=== PATIENT | male | born 1980 | race Caucasian/White ===

== ENCOUNTER 2024-12-20 02:07 | Day surgery (SDC) | payer OTHER, SELFPAY ==
[2024-12-14 08:45] VITALS: BMI 22.2
--- NOTE | 2024-12-14 09:17 | PC.NURSE ---
Report to Hospital entrance 7 to the right of the green pavilion located off [facility] by 'makayla parking lot, at time _1000_ on date _26-44-2021_. Planned Procedure Time: _1200_.? Time changes happen often and if your time is changed the preop area will call you the afternoon before. - You and your visitor will be asked to self-screen and do not enter if you have any COVID symptoms. Please call surgeon if you need to reschedule. - A mask is optional within the hospital at this time. Patients may have clear liquids (water, carbonated beverages, clear teas, apple juice) until 3 hours prior to surgery with a maximum of 20 ounces. - No food from midnight until time of surgery and no smoking, or chewing tobacco (or any form of nicotine). No chewing gum, candy or mints. Take only the following medications with a SIP of water on the morning of surgery: ____None___ DO NOT STOP ANY OF YOUR OTHER PRESCRIPTION MEDICATIONS PRIOR TO SURGERY EXCEPT THE FOLLOWING Hold all vitamins and supplements for 3 days per anesthesiologist. Medications to discontinue per physician Date to take last dose Please no make-up, nail burundian, hairspray, perfume, deodorant, or body powder the day of surgery.? No jewelry (including any body piercings) or valuables the day of surgery, leave them at home.? Please take a shower or bath the night before, or the morning of, surgery with an antibacterial soap.? Wear comfortable, loose fitting clothing.? - Jewelry must be removed prior to entering the operating room.? Rings and piercings that are not removed may be cut off. - The hospital will not accept responsibility for valuables.? - Please leave all valuables, including medications, at home the day of surgery. If you are going home after surgery, a licensed local company truck driver must drive you home.? - NO public transportation without another adult if you receive anesthesia. - We recommend that an adult stay with you for 24 hours following discharge. - We also recommend that you do not drive, make important decision, drink alcoholic beverages, or take any drugs that were not prescribed by your health care provider for at least 24 hours after your discharge time. Follow any additional instructions given to you from your surgeon. Telephone instructions given to __Dawna Lui___and asked if any additional questions and then verbalized understanding. Patient advised to call surgeon office or pre surgery nurse liaison [phone] if any additional questions.
--- OUTSIDE RECORDS SUMMARY | 2024-12-20 02:10 | XMS_ITS | Clinical Summary ---
Author Organization [facility] Address [address] [place] [address] Care Team Providers Care Eyeglass Inspector Name Role Phone Yris Melgar MD, Julio Primary Care Provider [phone] Allergies No known active allergies Medications No known medications Active Problems Problem Noted Date Diagnosed Date Recurrent umbilical hernia 01/30/2024 Family history of Jimenez syndrome 01/24/2024 Social History Tobacco Use Types Packs/Day Years Used Date Smoking Tobacco: Former Cigarettes Tobacco Cessation:Counseling Given: Not Answered Sex and Gender Information Value Date Recorded Sex Assigned at Not on file Legal Sex Male 2:40 PM CDT Gender Identity Not on file Sexual Orientation Not on file Last Filed Vital Signs Vital Sign Reading Time Taken Comments Blood Pressure 165/92 01/24/2024 10:02 AM CDT Pulse 66 01/24/2024 10:02 AM CDT Temperature 36.4 C (97.6 F) 01/24/2024 10:02 AM CDT Respiratory Rate 16 01/24/2024 10:02 AM CDT Oxygen Saturation 100% 01/24/2024 10:02 AM CDT Inhaled Oxygen Concentration - - Weight 79.8 kg (176 lb) 01/24/2024 10:02 AM CDT Height 190.5 cm (6' 3 ) 01/24/2024 10:02 AM CDT Body Mass Index 22 01/24/2024 10:02 AM CDT Plan of Treatment Health Maintenance Due Date Last Done Comments Annual Physical 12/15/1983 Hepatitis C 1998 DTaP, Tdap and Td Vaccines ( 1 - Tdap) 12/15/1999 Hepatitis B Vaccines (1 of 3 - 19+ 3-dose series) 12/15/1999 COVID-19 Vaccine (2023-2 5 season) 2024 PHQ-2 (Physician [place]) 08/22/2024 HPV Vaccines Aged Out No longer eligi ble based on patient's age to complete this topic Meningococcal B Vaccine Aged Out No l onger eligible based on patient's age to complete this topic Meningococcal Vaccine Aged Out No brock tree eligible based on patient's age to complete this topic Pneumococcal Vaccine: Pediat rics (0 to 5 Years) and At-Risk Patients (6 to 49 Years) Aged Out No longer eligible b ased on patient's age to complete this topic RSV Immunizations Under 20 Months Aged Out No longer eligible based on patient's age to complete this topic Insurance [id number] [place] [id number] [employer] Care Teams Eyeglass Inspector Relationship Specialty Start Date End Date Julio Arndt MD [facility] [address] [place] [address] PCP - General INTERNAL MEDICINE 11/07/23
[2024-12-20 09:50] VITALS: BP 128/90; PULSE 68; RESP 18; TEMP 36.7; O2SAT 100; BMI 22.1
--- NOTE | 2024-12-20 10:47 | SUR.PREOP ---
case cancelled for today patient and guards aware.
== END 2024-12-20 10:55 | disposition home or self-care (01) ==
PROVIDERS: Visit Provider Surgery
DX: K42.0 Umbilical hernia with obstruction, without gangrene (principal); Z53.9 Procedure and treatment not carried out, unspecified reason
CPT/HCPCS: 99212; G0463

== ENCOUNTER 2025-02-28 01:33 | Day surgery (SDC) | payer OTHER, SELFPAY ==
[2025-02-21 09:06] VITALS: BMI 21.7
--- NOTE | 2025-02-21 09:22 | PC.NURSE ---
Report to hospital entrance 7 right of the green pavilion located off [facility] by Jackie guzman, at time _1200_ on date _[id number]_. Planned Procedure Time: _2pm_.? Time changes happen often and if your time is changed the preop area will call you the afternoon before. - You and your visitor will be asked to self-screen and do not enter if you have any COVID symptoms. Please call surgeon if you need to reschedule. - A mask is optional within the hospital at this time. Patients may have clear liquids (water, carbonated beverages, clear teas, apple juice) until 3 hours prior to surgery with a maximum of 20 ounces. - No food from midnight until time of surgery and no smoking, or chewing tobacco (or any form of nicotine). No chewing gum, candy or mints. Take only the following medications with a SIP of water on the morning of surgery: ____None___ DO NOT STOP ANY OF YOUR OTHER PRESCRIPTION MEDICATIONS PRIOR TO SURGERY EXCEPT THE FOLLOWING Hold all vitamins and supplements for 3 days per anesthesiologist. Medications to discontinue per physician Date to take last dose Please no make-up, nail chinese, hairspray, perfume, deodorant, or body powder the day of surgery.? No jewelry (including any body piercings) or valuables the day of surgery, leave them at home.? Please take a shower or bath the night before, or the morning of, surgery with an antibacterial soap.? Wear comfortable, loose fitting clothing.? - Jewelry must be removed prior to entering the operating room.? Rings and piercings that are not removed may be cut off. - The hospital will not accept responsibility for valuables.? - Please leave all valuables, including medications, at home the day of surgery. If you are going home after surgery, a licensed bobtail driver must drive you home.? - NO public transportation without another adult if you receive anesthesia. - We recommend that an adult stay with you for 24 hours following discharge. - We also recommend that you do not drive, make important decision, drink alcoholic beverages, or take any drugs that were not prescribed by your health care provider for at least 24 hours after your discharge time. Follow any additional instructions given to you from your surgeon. Telephone instructions given to __Dawna Lui___and asked if any additional questions and then verbalized understanding. Patient advised to call surgeon office or pre surgery nurse liaison [phone] if any additional questions.
--- OUTSIDE RECORDS SUMMARY | 2025-02-28 01:38 | XMS_ITS | Clinical Summary ---
Author Organization [facility] Address [address] [place] [address] Care Team Providers Care Marble Cleaner Name Role Phone Yris Melgar MD, Julio Primary Care Provider [phone] Allergies No known active allergies Medications No [...] 10:02 AM CDT Height 190.5 cm (6' 3) 01/24/2024 10:02 AM CDT Body Mass Index 22 01/24/2024 10:02 AM CDT Plan of Treatment Health Maintenance Due Date Last Done Comments Annual Physical 12/15/1983 Hepatitis C 1998 DTaP, Tdap and Td Vaccines ( 1 - Tdap) 12/15/1999 Hepatitis B Vaccines (1 of 3 - 19+ 3-dose series) 12/15/1999 COVID-19 Vaccine (2023-2 5 season) 2024 PHQ-2 (Phys[facility] [place]) 08/22/2024 HPV Vaccines Aged Out No longer [...] complete this topic Insurance [id number] [place] [id number] [employer] Care Teams Marble Cleaner Relationship Specialty Start Date End Date Julio Arndt MD [facility] [address] [place] [address] PCP - General INTERNAL MEDICINE 11/07/23
--- NOTE | 2025-02-28 12:17 | P.HP_ITS ---
H&P: HPI History of Present Illness Date/Time: 02/28/25 12:17 Chief Complaint: Recurrent incisional hernia Narrative: Tawanda is a 43 y/o male who presents to the office at the request of Dr. Arndt for evaluation of a recurrent umbilical hernia. Patient states he has noticed a bulge at his umbilicus. He underwent right inguinal hernia repair and open umbilical hernia repair in 2018 in [place]. He states a few days following surgery, he stretched and felt a pulling pain at his umbilicus. States the bulge has gradually increased in size. States the bulge is very tender to palpation and becoming more difficult to reduce. Abdominal ultrasound was performed on 12/15/23 showing a 2.2cm recurrent umbilical hernia and a 2.5cm supraumbilical hernia, both containing mesenteric fat. Review of Systems Review of Systems: All systems reviewed & are unremarkable except as noted in HPI and below PMFSH Surgical History Surgical History H/O inguinal hernia repair 2018 Family History Family History Father Cancer Diabetes mellitus Social History Social History Smoking status: Former smoker Substance use type: opiates and other Other substance usage details: Stimulant use. Living arrangements: incarcerated Meds Home Medications and Allergies Home Medications ?Medication ?Instructions ?Recorded ?Confirmed ?Type No Home Medications 08/29/24 02/21/25 History Allergies Allergy/AdvReac Type Severity Reaction Status Date / Time No Known Allergies Allergy Verified 02/21/25 09:05 Exam Const: General: cooperative, comfortable and no acute distress Resp: Auscultation: clear to auscultation bilaterally Cardio: Rate: regular rate Rhythm: regular rhythm GI: Inspection: normal to inspection and non-distended GI Palp: Yes abdominal tenderness and Yes Hernia present Other: supraumbilical hernia measuring 3 cm, umbilical hernia measuring 2 cm Skin: General skin exam: normal color and no rashes or lesions noted Neuro: General: patient oriented x3 and CN's II-XI intact bilaterally
--- NOTE | 2025-02-28 12:19 | WPDHPUPDATE1 ---
History and Physical Update Update Date/Time: 02/28/25 12:19 History and Physical has been reviewed, including an updated exam of the patient. There are NO changes in the patient's condition. Risks, benefits, and alternatives have been discussed and questions answered. Patient agrees to proceed with procedure.
--- NOTE | 2025-02-28 12:21 | WPDHPUPDATE1 ---
History and Physical Update Update Date/Time: 02/28/25 12:21 History and Physical has been reviewed, including an updated exam of the patient. There are NO changes in the patient's condition. Risks, benefits, and alternatives have been discussed and questions answered. Patient agrees to proceed with procedure.
[2025-02-28 12:30] VITALS: BP 147/94; PULSE 71; RESP 16; TEMP 36.7; O2SAT 100
[2025-02-28] MEDS: ACETAMINOPHEN 500 MG TABLET 1000 MG PO (12:30)
[2025-02-28] MEDS: LACTATED RINGERS 1,000 ML 30 ML IV CONT ×2 (12:30→15:11)
[2025-02-28] MEDS: KETOROLAC 15 MG/ML VIAL (*BKC) IV PUSH (12:30)
--- NOTE | 2025-02-28 13:43 | PM.IMHP ---
H&P: HPI History of Present Illness Date/Time: 02/28/25 13:43 Chief Complaint: left inguinal hernia Narrative: The patient is a 44-year-old male that presented to have robotic assisted repair of recurrent umbilical hernia, as well as supraumbilical ventral hernia. Upon evaluation, the patient informed me that he has a new bulge in his left groin. He reports that he had a coughing episode a few weeks ago and felt something tear in his left groin. Since then he has noted bulging and discomfort in his left groin area. The patient denies any obstructive symptoms. Review of Systems Review of Systems: All systems reviewed & are unremarkable except as noted in HPI and below PMFSH Surgical History Surgical History H/O inguinal hernia repair 2018 Family History Family History Father Cancer Diabetes mellitus Social History Social History Smoking status: Former smoker Substance use type: opiates and other Other substance usage details: Stimulant use. Living arrangements: incarcerated Meds Home Medications and Allergies Home Medications ?Medication ?Instructions ?Recorded ?Confirmed ?Type No Home Medications 08/29/24 02/21/25 History Allergies Allergy/AdvReac Type Severity Reaction Status Date / Time No Known Allergies Allergy Verified 02/28/25 13:25 Vital Signs Vital Signs - 24 hr 02/28/25 12:30 Temperature 36.7 C Pulse Rate 71 Respiratory Rate 16 Blood Pressure 147/94 H Pulse Oximetry 100 Oxygen Delivery Room Air Exam Const: General: cooperative, comfortable and no acute distress HENMT: Head: normal to inspection, normocephalic and atraumatic Eyes: General: appearance normal, both eyes and all related structures Neck: Neck: normal visual inspection, full ROM and no lymphadenopathy Resp: Auscultation: clear to auscultation bilaterally Cardio: Rate: regular rate Rhythm: regular rhythm GI: Inspection: normal to inspection and non-distended GI Palp: Yes abdominal tenderness, Yes Soft to palpation and Yes Hernia present Other: Moderate-sized left inguinal hernia that is easily reducible, 3 cm supraumbilical ventral hernia, 2 cm umbilical hernia Skin: General skin exam: normal color and no rashes or lesions noted Neuro: General: patient oriented x3 and CN's II-XI intact bilaterally Extrem: General: normal to inspection and full ROM Assessment and Plan Assessment and plan (1) Left inguinal hernia: Code(s): K40.90 - Unilateral inguinal hernia, without obstruction or gangrene, not specified as recurrent Status: Acute Assessment and Plan: will go ahead and set up for robotic assisted left inguinal hernia repair with mesh (2) Recurrent umbilical hernia with incarceration: Code(s): K42.0 - Umbilical hernia with obstruction, without gangrene Status: Acute Assessment and Plan: will likely hold off on repair for later date as repairing umbilical and ventral hernia 1st would make inguinal surgery difficult in the future, will assess intraoperatively
--- NOTE | 2025-02-28 13:45 | P.PNAN_ITS ---
Anes - Initial Pre Proc Eval Procedure: Operation Date: 02/28/25 14:00 Proposed Procedures p Robotic Assisted Incarcerated Recurrent Umbilical Hernia Repair with Mesh - Barbara Chavez MD Date/Time: 02/28/25 13:45 Surgeon: Barbara Chavez MD Pre Op Diagnosis: Incarcerated Recurrent Umb Hernia Patient Data Age: 44 Gender: M Height: 1.91 m Weight: 78 kg Last Vital Signs Temp 36.7 C 02/28/25 12:30 Pulse 71 02/28/25 12:30 Resp 16 02/28/25 12:30 BP 147/94 H 02/28/25 12:30 Pulse Ox 100 02/28/25 12:30 O2 Del Method Room Air 02/28/25 12:30 Allergies Allergy/AdvReac Type Severity Reaction Status Date / Time No Known Allergies Allergy Verified 02/28/25 13:25 Home Medications ?Medication ?Instructions ?Recorded ?Confirmed ?Type No Home Medications 08/29/24 02/21/25 History Laboratory Tests 02/28/25 12:24 Blood Type A Positive Antibody Screen Negative Patient hx anesthesia problems: none Family hx anesthesia problems: none Results Review: All pre-operative results and documents have been reviewed as part of the pre- operative evaluation. [facility] Surgical History Surgical History H/O inguinal hernia repair 2018 Family History Family History Father Cancer Diabetes mellitus Social History Social History Smoking status: Former smoker Substance use type: opiates and other Other substance usage details: Stimulant use. Living arrangements: incarcerated Anes - Eval Final PreProcedure Day of Procedure 02/28/25 13:45 Patient weight: normal Heart: regular rate and rhythm Lungs: clear to auscultation Airway: Mallampati scale class II Neurological: alert and oriented Last oral intake: >/= 8 hours ASA classification: II Emergent: no Anesthetic plan: proceed Anesthesia type and monitoring: general ETT and standard monitoring Results Review: All pre-operative results and documents have been reviewed as part of the pre- operative evaluation. Informed Consent: The patient's anesthetic plan and its attendant risks and benefits were discussed with the patient/family/POA. Questions were solicited and answers provided to the satisfaction of the patient/family/POA.
--- NOTE | 2025-02-28 13:47 | WPDHPUPDATE1 ---
History and Physical Update Update Date/Time: 02/28/25 13:47 History and Physical has been reviewed, including an updated exam of the patient. There are NO changes in the patient's condition. Risks, benefits, and alternatives have been discussed and questions answered. Patient agrees to proceed with procedure. please see new H and P reflecting plan robotic assisted left inguinal hernia surgery
[2025-02-28] MEDS: ceFAZolin 2 GM in SODIUM CHLORIDE 0.9% IV 50 ML 100 ML IVPB (14:01)
[2025-02-28] MEDS: BUPIVACAINE/EPINEPHRINE 0.5% 30 ML VIAL INFILTRATE (14:22)
--- NOTE | 2025-02-28 15:09 | P.OP_ITS ---
Procedure Note - Detailed Date of Procedure 02/28/25 Pre-op Diagnosis Left inguinal hernia Post-op Diagnosis Same Procedure Performed robotic assisted left inguinal hernia repair with mesh Surgeon Barbara Chavez MD Anesthesia General and Local Indications 44-year-old male left inguinal hernia after upper respiratory infection and coughing a few weeks ago. Patient reports a bulge and tenderness, discomfort area. Findings indirect left inguinal hernia Description of Procedure Patient was brought into the operating room and placed in the supine position. After adequate induction of general anesthesia, the patient was prepped and draped in normal sterile fashion. A time-out was then done to verify the patient's identity, as well as the procedure being performed. I began by making a 8 mm incision in the supraumbilical region, a Veress needle was then placed into the peritoneal cavity. CO2 gas was then insufflated and after adequate pneumoperitoneum was achieved, the Veress needle was removed. I then placed an 8 mm trocar through this incision. I then placed the endoscope through this trocar site and under direct visualization placed 2 further 8 mm ports in the right and left mid abdomen. The [employer] robot was then docked to the 3 trocar sites. I then scrubbed out and went to the robotic console. Upon examining the pelvis, it was noted that the patient had a moderate sized left inguinal hernia. The right side was examined and no hernia defect was noted. I began by making a preperitoneal flap approximately 6 cm superior to the defect. This flap was carried medially past the umbilical ligaments and laterally to the transversalis. It then began dissection of my medial compartment taking this down to the pubic tubercle. I then began the lateral dissection taking this down to the transversalis fascia. Once these compartments were achieved, I began dissection around the cord structures. A moderate sized indirect hernia was noted at this point. Using careful dissection, was able to reduce indirect hernia sac off the cord structures. Once this was adequately done, I went ahead and placed a large piece of 3D Max mesh into the abdominal cavity. The mesh was carefully positioned, centering the center of the mesh over the indirect defect. Once this was done, was very satisfied with our repair. Using 3-0 Vicryl sutures, I tacked the mesh medially to Amado's ligament. Two lateral sutures were placed from the mesh to the transversalis fascia. I then closed the peritoneal flap with a running 2.0 V Lock suture. The abdomen was then desufflated, and all ports were removed. All incisions were then closed with the 4.0 monocryl suture. Dermabond was placed on each wound. The patient tolerated the procedure well, was extubated in the operating room postoperativ chris, and will now be transferred to the recovery room in stable condition. Implants large 3DMax mesh Estimated Blood Loss 10 Drains No Packing No Pathology None sent Complications No immediate complications Condition Stable Disposition PACU [facility] Billing Surgery - Charge Forward: Surgery Billing
[2025-02-28 15:11] VITALS: BP 98/57; PULSE 82; RESP 16; TEMP 37.4; O2SAT 97
[2025-02-28 15:25] VITALS: BP 127/79; PULSE 94; RESP 16; O2SAT 97
--- NOTE | 2025-02-28 15:31 | SUR.PHASEI ---
1525 - scrotal support to be placed on pt in outpatient area,
[2025-02-28 15:40] VITALS: BP 124/79; PULSE 77; RESP 16; O2SAT 98
[2025-02-28 15:52] VITALS: BP 134/82; PULSE 72; RESP 16
[2025-02-28] MEDS: oxyCODONE HCL (*CRX) 5 MG TAB IR PO (16:19)
[2025-02-28 16:20] VITALS: BP 128/78; PULSE 71; RESP 16
--- NOTE | 2025-02-28 16:45 | SUR.PHASEII ---
2 [employer]UR[employer] GUARDS ESCORTED PATIENT AND 2 INTERMEDIATE GUARDS TO EXIT. INTERMEDIATE GUARDS PRESENT WITH PATIENT AT ALL TIMES WHILE IN OP AREA.
== END 2025-02-28 16:45 | disposition home or self-care (01) ==
PROVIDERS: Visit Provider Surgery
PROC: (CPT 49650; principal; 2025-02-28 14:00)
DX: K40.90 Unilateral inguinal hernia, without obstruction or gangrene, not specified as recurrent (principal); Z98.890 Other specified postprocedural states; Z87.891 Personal history of nicotine dependence; Z80.9 Family history of malignant neoplasm, unspecified
CPT/HCPCS: 49650; S2900; 36415; 86850; 86900; 86901; J0690; A9270; C1781; J1100; J1171; J1885; J2003; J2250; J2405; J2704; J3010; J7120

== ENCOUNTER 2025-04-24 01:48 | Day surgery (SDC) | payer OTHER, SELFPAY ==
[2025-04-23 11:36] VITALS: BMI 22.3
[2025-04-24 07:49] VITALS: BP 138/93; PULSE 76; RESP 18; TEMP 36.2; O2SAT 100; BMI 21.2
[2025-04-24] MEDS: LACTATED RINGERS 1,000 ML 150 ML IV CONT (07:59)
--- NOTE | 2025-04-24 08:09 | WPDANESEPPF ---
Anes - Initial Pre Proc Eval Procedure: Operation Date: 04/24/25 09:00 Proposed Procedures p Screening Colonoscopy - Raj Arredondo MD Date/Time: 04/24/25 08:09 Surgeon: Raj Arredondo MD Pre Op Diagnosis: Family history of malignant neoplasm of digestive Patient Data Age: 44 Gender: M Height: 1.88 m Weight: 75.2 kg Last Vital Signs Temp 36.2 C L 04/24/25 07:49 Pulse 76 04/24/25 07:49 Resp 18 04/24/25 07:49 BP 138/93 H 04/24/25 07:49 Pulse Ox 100 04/24/25 07:49 O2 Del Method Room Air 04/24/25 07:49 Allergies Allergy/AdvReac Type Severity Reaction Status Date / Time No Known Allergies Allergy Verified 04/24/25 07:48 Home Medications ?Medication ?Instructions ?Recorded ?Confirmed ?Type No Home Medications 08/29/24 04/23/25 History Patient hx anesthesia problems: none Family hx anesthesia problems: none Results Review: All pre-operative results and documents have been reviewed as part of the pre-operative evaluation. [facility] Surgical History Surgical History (Updated 03/12/25 @ 13:07 by Karen Leslie CMA) Hx of inguinal hernia repair 02/28/2025 robotic assisted left inguinal hernia repair with mesh H/O inguinal hernia repair 2018 Family History Family History Father Cancer Diabetes mellitus Social History Social History Smoking status: Former smoker Alcohol intake: former Substance use type: opiates and other Other substance usage details: Stimulant use. Living arrangements: incarcerated Anes - Eval Final PreProcedure Day of Procedure 04/24/25 08:09 Patient weight: normal Heart: regular rate and rhythm Lungs: clear to auscultation and normal air movement Airway: Mallampati scale class II Neurological: alert and oriented Last oral intake: >/= 8 hours ASA classification: II Emergent: no Anesthetic plan: proceed Anesthesia type and monitoring: general GIVS and standard monitoring Results Review: All pre-operative results and documents have been reviewed as part of the pre-operative evaluation. Informed Consent: The patient's anesthetic plan and its attendant risks and benefits were discussed with the patient/family/POA. Questions were solicited and answers provided to the satisfaction of the patient/family/POA.
--- NOTE | 2025-04-24 08:50 | P.HP_ITS ---
History of Present Illness History of Present Illness Consent: Risks, benefits, and alternatives have been discussed and questions answered. Patient agrees to proceed with procedure. Chief complaint: Family history of malignant neoplasm of digestive Narrative: Tawanda Pinto is a 44 year old male here for first screening colonoscopy, he is a prisoner Review of Systems Review of Systems: All systems reviewed & are unremarkable except as noted in HPI and below PMFSH Past Medical History Medical History (Updated 04/24/25 @ 08:50 by Raj Arredondo MD) Colon cancer screening Surgical History Surgical History (Updated 03/12/25 @ 13:07 by Karen Leslie CMA) Hx of inguinal hernia repair 02/28/2025 robotic assisted left inguinal hernia repair with mesh H/O inguinal hernia repair 2018 Family History Family History Father Cancer Diabetes mellitus Social History Social History Smoking status: Former smoker Alcohol intake: former Substance use type: opiates and other Other substance usage details: Stimulant use. Living arrangements: incarcerated Meds Home Medications and Allergies Home Medications ?Medication ?Instructions ?Recorded ?Confirmed ?Type No Home Medications 08/29/24 04/23/25 H istory Allergies Allergy/AdvReac Type Severity Reaction Status Date / Time No Known Allergies Allergy Verified 04/24/25 07:48 Vital Signs Vital Signs - 24 hr 04/24/25 07:49 Temperature 97.2 F L Pulse Rate 76 Respiratory Rate 18 Blood Pressure 138/93 H Pulse Oximetry 100 Oxygen Delivery Room Air Exam Const: General: comfortable and no acute distress HENMT: Face/Nose/Sinus: Normal nares present Eyes: General: appearance normal, both eyes and all related structures Neck: Neck: no JVD Resp: Auscultation: clear to auscultation bilaterally Cardio: Rate: regular rate Rhythm: regular rhythm GI: Inspection: non-distended GI Palp: Yes Soft to palpation Skin: General skin exam: normal color Neuro: Speech: normal speech Extrem: General: normal to inspection Psych: Mental Status: mental status grossly normal Assessment and Plan Assessment and plan (1) Colon cancer screening: Code(s): Z12.11 - Encounter for screening for malignant neoplasm of colon Status: Acute Assessment and Plan: colonoscopy
[2025-04-24 09:02] VITALS: BP 94/60; PULSE 83; RESP 20; O2SAT 100
[2025-04-24 09:12] VITALS: BP 126/79; PULSE 81; RESP 17; O2SAT 100
[2025-04-24 09:22] VITALS: BP 111/77; PULSE 70; RESP 20; O2SAT 100
== END 2025-04-24 09:35 | disposition home or self-care (01) ==
PROVIDERS: Referring Provider Physician Assistant; Visit Provider Internal Medicine Gastroenterology
PROC: 0DJD8ZZ Inspection of Lower Intestinal Tract, Via Natural or Artificial Opening Endoscopic (ICD-10-PCS; CPT 45378; principal; 2025-04-24 09:00)
DX: Z12.11 Encounter for screening for malignant neoplasm of colon (principal); Z87.891 Personal history of nicotine dependence
CPT/HCPCS: 45378; J2704; J7120

== ENCOUNTER 2025-05-30 00:40 | Day surgery (SDC) | payer OTHER, SELFPAY ==
[2025-05-13 13:05] VITALS: BMI 21.7
--- NOTE | 2025-05-13 13:12 | PC.NURSE ---
[facility] has started construction of its new state of the art ER which will open Spring 2026. With this, we anticipate parking may be a challenge for some our surgical patients and families. Parking spaces are limited but are available for all Surgical, obstetrics, and ER patients sharing this lot. If you arrive and find you are having a hard time finding a parking space, please note that we understand the challenges, please drive around the hospital and park near Hospital Entrance 1. When you enter this entrance, you can ask a volunteer to direct or take you back to the surgical waiting area to check in. We appreciate everyone?s understanding of these expected challenges while we build for your future. Report to hospital entrance 7 right of the green pavilion located off [address] by Jackie guzman, at time _0600_ on date _[id number]_. Planned Procedure Time: _0730_.? Time changes happen often and if your time is changed the preop area will call you the afternoon before. - You and your visitor will be asked to self-screen and do not enter if you have any COVID symptoms. Please call surgeon if you need to reschedule. - A mask is optional within the hospital at this time. Patients may have clear liquids (water, carbonated beverages, clear teas, apple juice) until 3 hours prior to surgery with a maximum of 20 ounces. - No food from midnight until time of surgery and no smoking, or chewing tobacco (or any form of nicotine). No chewing gum, candy or mints. Take only the following medications with a SIP of water on the morning of surgery: ___None___ DO NOT STOP ANY OF YOUR OTHER PRESCRIPTION MEDICATIONS PRIOR TO SURGERY EXCEPT THE FOLLOWING Hold all vitamins and supplements for 3 days per anesthesiologist. Medications to discontinue per physician Date to take last dose Please no make-up, nail iraqi, hairspray, perfume, deodorant, or body powder the day of surgery.? No jewelry (including any body piercings) or valuables the day of surgery, leave them at home.? Please take a shower or bath the night before, or the morning of, surgery with an antibacterial soap.? Wear comfortable, loose fitting clothing.? - Jewelry must be removed prior to entering the operating room.? Rings and piercings that are not removed may be cut off. - The hospital will not accept responsibility for valuables.? - Please leave all valuables, including medications, at home the day of surgery. If you are going home after surgery, a licensed wagon driver must drive you home.? - NO public transportation without another adult if you receive anesthesia. - We recommend that an adult stay with you for 24 hours following discharge. - We also recommend that you do not drive, make important decision, drink alcoholic beverages, or take any drugs that were not prescribed by your health care provider for at least 24 hours after your discharge time. Follow any additional instructions given to you from your surgeon. Telephone instructions given to __Dawna Lui___and asked if any additional questions and then verbalized understanding. Patient advised to call surgeon office or pre surgery nurse liaison [phone] if any additional questions.
[2025-05-30] VITALS (8 sets, daily range): BP systolic 115–130; BP diastolic 73–92; PULSE 63–100; RESP 12–16; TEMP 36.3–36.6; O2SAT 95–100
--- NOTE | 2025-05-30 06:55 | WPDANESEPPF ---
Anes - Initial Pre Proc Eval Procedure: Operation Date: 05/30/25 07:30 Proposed Procedures p Robotic Assisted Recurrent Ventral Hernia Repair with Mesh - Barbara Chavez MD Date/Time: 05/30/25 06:55 Surgeon: Barbara Chavez MD Pre Op Diagnosis: recurrent umbilical hernia greater than (6cm) Patient Data Age: 44 Gender: M Height: 1.91 m Weight: 78.6 kg Allergies Allergy/AdvReac Type Severity Reaction Status Date / Time No Known Allergies Allergy Verified 05/13/25 13:06 Home Medications ?Medication ?Instructions ?Recorded ?Confirmed ?Type No Home Medications 08/29/24 05/13/25 History Patient hx anesthesia problems: none Family hx anesthesia problems: none Results Review: All pre-operative results and documents have been reviewed as part of the pre-operative evaluation. [facility] Past Medical History Medical History Depression Anxiety Colon cancer screening Surgical History Surgical History Hx of inguinal hernia repair 02/28/2025 robotic assisted left inguinal hernia repair with mesh H/O inguinal hernia repair 2018 Family History Family History Father Cancer Diabetes mellitus Social History Social History Smoking status: Former smoker Alcohol intake: former Substance use type: amphetamines, opiates and other Other substance usage details: Stimulate abuse. Living arrangements: incarcerated Anes - Eval Final PreProcedure Day of Procedure 05/30/25 06:55 Patient weight: normal Heart: regular rate and rhythm Lungs: clear to auscultation Airway: Mallampati scale class II Neurological: alert and oriented Last oral intake: >/= 8 hours ASA classification: II Emergent: no Anesthetic plan: proceed Anesthesia type and monitoring: general ETT and standard monitoring Results Review: All pre-operative results and documents have been reviewed as part of the pre-operative evaluation. Informed Consent: The patient's anesthetic plan and its attendant risks and benefits were discussed with the patient/family/POA. Questions were solicited and answers provided to the satisfaction of the patient/family/POA.
[2025-05-30] MEDS: KETOROLAC 15 MG/ML VIAL (*BKC) IV PUSH ×2 (07:00→12:49)
[2025-05-30] MEDS: LACTATED RINGERS 1,000 ML 30 ML IV CONT ×2 (07:00→11:00)
[2025-05-30] MEDS: ACETAMINOPHEN 500 MG TABLET 1000 MG PO (07:00)
--- NOTE | 2025-05-30 07:16 | P.HP_ITS ---
H&P: HPI History of Present Illness Date/Time: 05/30/25 07:16 Chief Complaint: Umbilical hernia and periumbilical ventral hernia Narrative: The patient is a 44-year-old male that has previously had bilateral inguinal hernia repair. Patient has since developed a periumbilical ventral hernia, as well as an umbilical hernia. Patient reports that these hernias have been present the last few months and seemed to be enlarging in size. The patient reports that these areas are quite symptomatic especially with exertion. The patient denies any obstructive symptoms. Of note, patient reports he had previous umbilical hernia repair in the past. Review of Systems Review of Systems: All systems reviewed & are unremarkable except as noted in HPI and below PMFSH Past Medical History Medical History Depression Anxiety Colon cancer screening Surgical History Surgical History Hx of inguinal hernia repair 02/28/2025 robotic assisted left inguinal hernia repair with mesh H/O inguinal hernia repair 2018 Family History Family History Father Cancer Diabetes mellitus Social History Social History Smoking status: Former smoker Alcohol intake: former Substance use type: amphetamines, opiates and other Other substance usage details: Stimulate abuse. Living arrangements: incarcerated Meds Home Medications and Allergies Home Medications ?Medication ?Instructions ?Recorded ?Confirmed ?Type No Home Medications 08/29/24 05/13/25 H istory Allergies Allergy/AdvReac Type Severity Reaction Status Date / Time No Known Allergies Allergy Verified 05/13/25 13:06 Exam Const: General: cooperative, comfortable and no acute distress Resp: Auscultation: clear to auscultation bilaterally Cardio: Rate: regular rate Rhythm: regular rhythm GI: Inspection: normal to inspection, non-distended and visible herniation GI Palp: Yes abdominal tenderness, Yes Soft to palpation and Yes Hernia present Other: Umbilical hernia and supraumbilical ventral hernia combined measuring approximately 6 cm Assessment and Plan Assessment and plan (1) Recurrent umbilical hernia: Code(s): K42.9 - Umbilical hernia without obstruction or gangrene Status: Acute Assessment and Plan: Will set up for robotic assisted repair with mesh, given combined size of both hernias and distance in between, will likely proceed with retro rectus repair (2) Ventral hernia: Code(s): K43.9 - Ventral hernia without obstruction or gangrene Status: Acute Assessment and Plan: see above
--- NOTE | 2025-05-30 07:20 | WPDHPUPDATE1 ---
History and Physical Update Update Date/Time: 05/30/25 07:20 History and Physical has been reviewed, including an updated exam of the patient. There are NO changes in the patient's condition. Risks, benefits, and alternatives have been discussed and questions answered. Patient agrees to proceed with procedure. patient is set up for robotic assisted recurrent umbilical and ventral hernia repair with mesh
[2025-05-30] MEDS: ceFAZolin 2 GM in SODIUM CHLORIDE 0.9% IV 50 ML 100 ML IVPB (07:28)
[2025-05-30] MEDS: BUPIVACAINE/EPINEPHRINE 0.5% 30 ML VIAL INFILTRATE (08:12)
--- NOTE | 2025-05-30 11:11 | W.PM.PROC2 ---
Procedure Note - Detailed Date of Procedure 05/30/25 Pre-op Diagnosis recurrent umbilical hernia and supraumbilical ventral, recurrent umbilical hernia defect 2 cm with approximately 2 cm in between umbilical hernia and supraumbilical ventral hernia measuring 2 cm, diastasis recti Post-op Diagnosis Same Procedure Performed robotic assisted repair of recurrent umbilical hernia and supraumbilical ventral hernia measuring 6 cm with mesh, myofascial release x2 Surgeon Barbara Chavez MD [employer] MD Bhavesh Anesthesia General and Local Indications 44-year-old male presenting with recurrent umbilical hernia and supraumbilical ventral hernia, also upper midline diastasis recti Findings recurrent umbilical hernia measuring 2 cm, supraumbilical ventral hernia measuring 2 cm, 2 cm bridge between 2 hernias, upper midline diastasis Description of Procedure The patient was taken to the operating room and placed in the supine position. After adequate induction of general anesthesia, the patient was prepped and draped in the normal sterile fashion. A time-out was then done to verify the patient's identity, as well as the procedure being performed. I began by placing a 8 mm port in the left upper quadrant, this was done via the Optiview trocar under direct visualization. Once in the intra-abdominal cavity, the abdomen was insufflated with CO2 gas. After adequate pneumoperitoneum was achieved, the camera was placed into this trocar site and the abdomen was examined. There was noted to be an umbilical hernia and a supraumbilical ventral hernia. Under direct visualization, I placed a further 8 mm left mid abdominal port, as well as a 8 mm left lower abdominal port. The patient was then positioned and the robot was docked to these trocar sites. I then scrubbed out and proceeded with the surgery at the robotic console. At this point I measured 6 cm lateral to the hernia defect. I then gained access by making a flap into the left retro muscular space. The first myofascial release was started with posterior rectus sheath released off the left rectus muscle. This dissection was performed all the way to the medial edge rectus muscle, the dissection was continued from the costal margin into the space Retzius. The upper medial aspect of the posterior sheath was then incised and we entered the preperitoneal space and transitioned to the contralateral retro muscular space. This was difficult and my partner Dr. Ospina was present and assisted with the crossover portion as well as the contralateral myofascial release. This was done in order to continue the repair and improved the medialization of the anterior rectus sheath for the purpose reconstruction of the linea alba. The contralateral posterior rectus sheath was dissected and released off the right rectus muscle. This was done to the semilunaris and the neurovascular bundles were identified and preserved. The retro muscular space was dissected cranial and caudal to the hernia defects matching ipsilateral side. I then dissected the incarcerated preperitoneal fat from the umbilical hernia defect, as well as the supraumbilical ventral hernia. All contents were reduced leaving a approximately 6 cm defect. During the dissection of the hernia a small puncture was made in the overlying dermis. The patient also had significant diastasis in addition to the umbilical defect. The aforementioned bilateral myofascial release allowed myofascial medialization for the purpose of zoroastrian of the linea alba. I then closed the 6 cm defect with 0 Stratafix suture. The linea alba was using a Stratafix suture in a plicating method, effectively eliminating the diastasis. A 15 x 20 piece of Ventralight mesh was then placed in the retrorectus space. Of note, the inferior left abdominal port was switched to a 12 mm port to allow placement of the mesh. The mesh laid flat with no buckling. Once positioned it was noted to have good overlap of our hernia defect. I then closed the posterior rectus sheath flap using a 2 0 V lock suture. The 12 mm port site was closed under direct visualization using a 0 Vicryl stitch. The robot was then undocked and all ports were removed. I then freshened the edges around the iatrogenic dermal incision in the periumbilical area. The subcutaneous tissue was then closed with 3-0 Vicryl suture. All incisions were closed with 4-0 Monocryl subcuticular sutures. Dermabond was placed on all wounds. The patient tolerated the procedure well. He was extubated in the operating room postoperatively. He will be transferred to the recovery room in stable condition. Estimated Blood Loss 10 Pathology None sent Complications No immediate complications Condition Stable Disposition PACU [facility] Billing Surgery - Charge Forward: Surgery Billing
[2025-05-30] MEDS: fentaNYL CITRATE INJ (*CRX) 100 MCG/2 ML VIAL 25 MCG IV PUSH ×8 (11:20→11:45)
[2025-05-30] MEDS: oxyCODONE HCL (*CRX) 5 MG TAB IR PO (12:02)
== END 2025-05-30 13:17 | disposition home or self-care (01) ==
PROVIDERS: Visit Provider Surgery
PROC: (CPT 49615; principal; 2025-05-30 07:30)
DX: K42.9 Umbilical hernia without obstruction or gangrene (principal); K43.9 Ventral hernia without obstruction or gangrene; M62.08 Separation of muscle (nontraumatic), other site; F32.A Depression, unspecified; F41.9 Anxiety disorder, unspecified; Z98.890 Other specified postprocedural states; Z87.891 Personal history of nicotine dependence; Z80.9 Family history of malignant neoplasm, unspecified
CPT/HCPCS: 49615; 15734 ×2; S2900; 36415; 86850; 86900; 86901; J0690; A9270; C1781; J1100; J1885; J2003; J2250; J2405; J2704; J3010; J7030; J7120